=== PATIENT | female | born 1980 | race Caucasian/White ===

== ENCOUNTER → 2024-10-26 | Outpatient (CLI) | payer OTHER, SELFPAY ==
[2024-10-26 13:22] LABS: Follicle Stimulating Hormone 10.94 mIU/mL (See Note)
[2024-11-01 07:04] LABS: Estradiol, Ultrasensitive* 48 pg/mL; Testosterone,Total* 23 ng/dL (2-45)
== END | disposition home or self-care (01) ==
LOC: COPL 11:57
PROVIDERS: PCP Internal Medicine; Referring Provider Internal Medicine; Visit Provider Internal Medicine
DX: N95.1 Menopausal and female climacteric states (principal); R68.82 Decreased libido; R23.2 Flushing; N95.2 Postmenopausal atrophic vaginitis
CPT/HCPCS: 36415; 82670; 83001; 84403

== ENCOUNTER → 2025-04-08 | Outpatient (CLI) | payer OTHER, SELFPAY ==
[2025-04-08 14:30] LABS: Follicle Stimulating Hormone 4.68 mIU/mL (See Note)
[2025-04-20 06:17] LABS: Estradiol, Ultrasensitive* 104 pg/mL; Testosterone,Total* 25 ng/dL (2-45)
== END | disposition home or self-care (01) ==
PROVIDERS: PCP Nurse Practitioner; Referring Provider Internal Medicine; Visit Provider Internal Medicine
DX: N95.1 Menopausal and female climacteric states (principal); N95.2 Postmenopausal atrophic vaginitis; R68.82 Decreased libido; R23.2 Flushing
CPT/HCPCS: 36415; 82670; 83001; 84403